=== PATIENT | male | born 1960 | race Caucasian/White ===

== ENCOUNTER 2023-03-22 13:22 | Outpatient (OUT) | payer OTHER, SELFPAY ==
[2023-03-22 14:25] LABS: Anion Gap 11.9; BUN Creatinine Ratio 21.5; Calcium 9.4 mg/dL (8.5-10.1); Carbon Dioxide 28.4 mmol/L (21.0-32.0); Chloride 99 mmol/L (98-107); Estimated GFR (African America >60 (>=60); Estimated GFR (Non-African Ame >60 (>=60); Glucose 104 mg/dL (74-106); Potassium 4.3 mmol/L (3.5-5.1); Sodium 135 mmol/L (136-145)
== END 2023-03-22 13:23 ==
LOC: LAB 13:22
PROVIDERS: PCP Internal Medicine; Visit Provider Internal Medicine
DX: K70.30 Alcoholic cirrhosis of liver without ascites (principal)
CPT/HCPCS: 36415; 80048